=== PATIENT | female | born 1985 | race Caucasian/White ===

== ENCOUNTER 2019-11-26 09:02 | Emergency (ER) | payer OTHER ==
[~2019-11-26] VITALS: Ht 154.9 cm; Wt 94.3 kg
[2019-11-26 09:15] VITALS: BP_SYST 156
[2019-11-26] MEDS ORDERED: KETOROLAC TROMETHAMINE 60 MG/2 ML VIAL IM ONE (09:45)
[2019-11-26] MEDS ORDERED: ONDANSETRON HCL 4 MG/2 ML VIAL IM ONE (09:45)
[2019-11-26] MEDS ORDERED: PANTOPRAZOLE SODIUM 40 MG TAB PO ONE (10:00)
[2019-11-26] MEDS ORDERED: DICYCLOMINE HCL 10 MG/5 ML SOLUTION PO ONE (10:00)
[2019-11-26] MEDS ORDERED: LIDOCAINE VISCOUS 2%, 15 ML UDC MM ONE (10:00)
[2019-11-26] MEDS ORDERED: MAG-AL HYDROX/SIMETH 30 ML UDC PO ONE (10:00)
[2019-11-26 11:15] VITALS: BP_SYST 156
== END 2019-11-26 11:15 | disposition home or self-care (01) ==
LOC: SED 09:02
DX: K21.9 Gastro-esophageal reflux disease without esophagitis (principal); R03.0 Elevated blood-pressure reading, without diagnosis of hypertension
CPT/HCPCS: 96372; 99284; J1885; J2001; J2405